=== PATIENT | female | born 1980 | race African-American/Black ===

== ENCOUNTER 2017-04-28 14:23 | Emergency (ER) | payer BC, SELFPAY ==
[2017-04-28] MEDS ORDERED: cloNIDine HCl 0.1 MG TAB ONE (15:29)
[2017-04-28] MEDS ORDERED: Diazepam 5 MG TAB ONE (15:29)
[2017-04-28] MEDS ORDERED: HYDROcodone/Acetaminophen 5/325 mg Tablet ONE (15:29)
[2017-04-28 15:51] LABS: Bilirubin Negative (Negative); Blood, Urine Negative (Negative); Glucose, Urine (Dipstick) Negative (Negative); Ketone, Urine Negative (Negative); Nitrite Negative (Negative); Protein, Urine (Dipstick) Negative (Neg-Trace)
== END 2017-04-28 16:37 | disposition home or self-care (01) ==
LOC: ERS 14:23
DX: I10 Essential (primary) hypertension (principal); F43.9 Reaction to severe stress, unspecified; Z79.899 Other long term (current) drug therapy
CPT/HCPCS: 81003; 81025; 99284

== ENCOUNTER 2017-05-12 22:49 | Emergency (ER) | payer BC | END 2017-05-13 00:02 | disposition home or self-care (01) | LOC: ERS 22:49 | DX: J06.9 Acute upper respiratory infection, unspecified (principal); I10 Essential (primary) hypertension; Z79.899 Other long term (current) drug therapy | CPT/HCPCS: 99283 ==

== ENCOUNTER 2018-05-18 11:00 | Outpatient (CLI) | payer OTHER | END 2018-05-18 11:01 | disposition home or self-care (01) | LOC: BICMAMMO 11:00 | PROVIDERS: ATTEND Family Medicine | DX: Z12.31 Encounter for screening mammogram for malignant neoplasm of breast (principal); Z80.3 Family history of malignant neoplasm of breast | CPT/HCPCS: 77063; 77067 ==

== ENCOUNTER 2024-06-03 15:11 | Emergency (ER) | payer SELFPAY ==
[~2024-06-03 15:11] MED LIST: Iopamidol-370 76% 500 ML MDV (1 ML CHARGE) ONE
[2024-06-03 16:06] LABS: #Basophils 0.06 10x3/uL (0.0-0.2); %Eosinophils 1.6 % (0.0-10.0); %Lymphocytes 41.5 % (21.0-51.0); %Monocytes 10.8 % (0.0-10.0); %Neutrophils 44.9 % (42.0-75.0); Hematocrit 43.4 % (36.0-47.0); Hemoglobin 13.9 g/dL (12.0-16.0); Mean Corpuscular Hemoglobin 26.4 pg (27.0-31.0); Mean Corpuscular Volume 82.4 fL (78.0-98.0); Mean Platelet Volume 11.1 fL (7.4-10.4); Platelet Count 305 10x3/uL (130-400); RBC Distribution Width 14.1 % (11.5-14.5); Red Blood Cell (RBC) Count 5.27 mill/uL (4.20-5.40)
[2024-06-03 16:25] LABS: ALT (SGPT) 19 U/L (8-55); AST (SGOT) 20 U/L (5-34); Albumin 3.6 g/dL (3.5-5.0); Alkaline Phosphatase 108 U/L (40-110); Anion Gap 13 mmol/L (10-20); BUN (Urea Nitrogen) 8 mg/dL (7.0-18.7); Bilirubin, Total 0.5 mg/dL (0.2-1.2); Calc. Creatinine Clearance 0 mL/min (70-130); Carbon Dioxide 22 mmol/L (22-29); Chloride 104 mmol/L (98-107); Estimated GFR 96; Globulin 3.9 g/dL (2.4-3.5); Glucose 84 mg/dL (70-105); Lipase 10 U/L (8-78); Magnesium 1.9 mg/dL (1.6-2.6); Potassium 3.8 mmol/L (3.5-5.1); Protein, Total 7.5 g/dL (6.0-8.3); Sodium 135 mmol/L (136-145)
[2024-06-03 16:26] LABS: BHCG - Serum Negative (NEGATIVE); Pregs Control Background? CLEAR/WHITE (CLR/WHITE); Pregs Control Bar Appear? YES (CONTROL BAR)
[2024-06-03 16:34] LABS: Troponin I Less than 0.010 ng/mL (< 0.028)
[2024-06-03] MEDS ORDERED: Aspirin Chewable 81 MG TAB ONE (17:14)
[2024-06-03] MEDS ORDERED: Famotidine/PF 20 mg/2ml Vial ONE (17:16)
[2024-06-03] MEDS ORDERED: Ondansetron PF 4 MG/2 ML Vial ONE (18:29)
== END 2024-06-03 18:00 | disposition home or self-care (01) ==
LOC: ERS 15:11
DX: M94.0 Chondrocostal junction syndrome [Tietze] (principal); I10 Essential (primary) hypertension
CPT/HCPCS: 36415; 71045; 71275; 80053; 83690; 83735; 84484; 84703; 85025; 93005; 96374; 96375; J2405; J3490; Q9967